=== PATIENT | male | born 1955 ===

== ENCOUNTER 2017-01-12 12:36 | Inpatient (IN) | payer MEDICAID ==
[2017-01-12 14:10] LABS: CHLORIDE 100 mmol/L (98-107); POTASSIUM 4.4 mmol/L (3.6-5.2); SODIUM 137 mmol/L (132-148)
[2017-01-12 14:12] LABS: GFR AFRICAN-AMERICAN > 60
[2017-01-12 14:13] LABS: ALB/GLOB RATIO 0.9 (1.0-2.1); ALKALINE PHOSPHATASE 63 U/L (38-126); ALT/SGPT 20 U/L (21-72); AST/SGOT 92 U/L (17-59); BLOOD UREA NITROGEN 14 mg/dL (9-20); CALCIUM 8.8 mg/dl (8.6-10.4); CARBON DIOXIDE 17 mmol/L (22-30); GLUCOSE,RANDOM 127 mg/dL (75-110); TOTAL PROTEIN 8.2 g/dL (6.3-8.3)
[2017-01-12 14:14] LABS: ALCOHOL SERUM 236 mg/dl (0-10)
[2017-01-12 14:17] LABS: BASO # 0.1 K/uL (0.0-0.2); BASO % 2.1 % (0.0-2.0); EOS % 0.2 % (0.0-4.0); HEMATOCRIT 28.3 % (35.0-51.0); LYMPH % 22.4 % (20.0-40.0); MEAN CELL VOLUME 90.4 fL (80.0-94.0); MEAN CORPUSCULAR HEMOGLOBIN 28.8 pg (27.0-31.0); MEAN CORPUSCULAR HGB CONC 31.8 g/dL (33.0-37.0); MEAN PLATELET VOLUME 9.6 fL (7.2-11.7); MONO # 0.8 K/uL (0.0-0.8); MONO % 18.6 % (0.0-10.0); WHITE BLOOD COUNT 4.3 K/uL (4.8-10.8)
--- NOTE | 2017-01-12 14:17 | C.PDOC ---
History Of Present Illness 61 y/o male presents to ED requesting alcohol detox. Patient states he regularly drinks 1 or more bottles of wine per night. Patient reports last drink was last night. Denies any other significant complaints. Chief Complaint (Nursing): Substance Abuse History Per: Patient History/Exam Limitations: no limitations Current Symptoms Are (Timing): Still Present Modifying Factor(s): Alcohol Associated Symptoms: Depression, Suicidal Thoughts. denies: Anger, Agitation, Suicidal Plan Recent travel outside of the [place]: No Past Medical History Reviewed: Historical Data, Nursing Documentation, Vital Signs Vital Signs: Last Vital Signs Temp 98.4 F 01/12/17 13:58 Pulse 103 H 01/12/17 13:58 Resp 20 01/12/17 13:58 BP 95/54 L 01/12/17 13:58 Pulse Ox 97 01/12/17 14:19 - Medical History PMH: HTN Family History: States: Unknown Family Hx - Social History Hx Alcohol Use: Yes Hx Substance Use: No - Immunization History Hx Tetanus Toxoid Vaccination: No Hx Influenza Vaccination: No Hx Pneumococcal Vaccination: No Review Of Systems Except As Marked, All Systems Reviewed And Found Negative. Constitutional: Negative for: Fever, Chills Cardiovascular: Negative for: Chest Pain, Palpitations Respiratory: Negative for: Shortness of Breath, Wheezing Gastrointestinal: Negative for: Nausea, Vomiting Skin: Negative for: Rash Neurological: Negative for: Headache, Dizziness Physical Exam - Physical Exam Appears: Non-toxic, No Acute Distress Skin: Warm, Dry Head: Atraumatic, Normacephalic Chest: Symmetrical Cardiovascular: Rhythm Regular Respiratory: Normal Breath Sounds, No Rales, No Rhonchi, No Wheezing Gastrointestinal/Abdominal: Soft, No Tenderness, No Guarding, No Rebound Back: Normal Inspection Extremity: Normal ROM, Capillary Refill (< 2 sec. ) Neurological/Psych: Oriented x3 ED Course And Treatment - Laboratory Results Result Diagrams: 01/12/17 13:59 01/12/17 13:59 O2 Sat by Pulse Oximetry: 97 Pulse Ox Interpretation: Normal Medical Decision Making Medical Decision Making: Plan: * Labs * Crisis Eval * Reassess Progress: Disposition - Disposition Disposition: HOSPITALIZED Disposition Time: 18:14 Condition: STABLE - Clinical Impression Clinical Impression: Alcohol abuse - Scribe Statement The provider has reviewed the documentation as recorded by the Robert Giron Provider Scribe Attestation: All medical record entries made by the Scribe were at my direction and personally dictated by me. I have reviewed the chart and agree that the record accurately reflects my personal performance of the history, physical exam, medical decision making, and the department course for this patient. I have also personally directed, reviewed, and agree with the discharge instructions and disposition. Decision To Admit - Pt Status Changed To: Hospital Disposition Of: Inpatient - Admit Certification Admit to Inpatient:: After my assessment, the patient will require hospitalization for at least two midnights. This is because of the severity of symptoms shown, intensity of services needed, and/or the medical risk in this patient being treated as an outpatient. - InPatient: Physician Admission Certification: I certify that this patient requires 2 or more midnights of care for the following reason:: needs inpatient detox - . Bed Request Type: Detox Admitting Physician: Yary Mix Patient Diagnosis: Alcohol abuse
[2017-01-12 15:14] LABS: RBC URINE 5 /hpf (0-3); URINE BACTERIA RARE (<OCC); URINE BILIRUBIN NEGATIVE (NEGATIVE); URINE COLOR Yellow (YELLOW); URINE GLUCOSE (UA) NORMAL (Normal); URINE KETONE TRACE mg/dL (NEGATIVE); URINE LEUKOCYTE ESTERASE 3+ Leu/uL (Negative); URINE PROTEIN NEGATIVE (NEGATIVE); URINE UROBILINOGEN NORMAL mg/dL (0.2-1.0); WBC URINE 85 /hpf (0-5)
[2017-01-12 15:21] LABS: URINE BLOOD TRACE (NEGATIVE)
[2017-01-12 20:17] VITALS: RESP 18
[2017-01-13] MEDS: Multiple Vitamins Tab PO SCH (09:53)
[2017-01-14] MEDS: Multiple Vitamins Tab PO SCH (09:24)
--- NOTE | 2017-01-14 19:05 | PCM.PSYCH ---
Initial Psychiatric Evaluation - Initial Psychiatric Evaluation Legal Status: Capacity Chief Complaint (in patient's own words): I want to get sober. Patient's Reaction to Hospitalization: I'm glad they finally had a bed for me. 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 Pt had a blood alcohol llevel of 236. He started drinking in [place] at age 11. He started drinking heavily about 8 or 9 yrs ago. Pt inn the past used heroin, 3-4 bags a day and allso smoked crack cocaine. Pt has had 1 previous detox at [facility]. 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 Gis father is ; he mother is living. He has 1 br and 1 sis. He has no psych history. He has never been on psychiatric meds. He has no history of suicide ideation or attempts. Pt has extensive medical history: htn, dm, s/p gastric cancer w colostomy. Current Medications: Active Medications Generic Name Dose Route Start Last Admin Trade Name Kaushik PRN Reason Stop Dose Admin Chlordiazepoxide 25 mg 01/13/17 00:00 01/14/17 13:19 Librium PO 01/16/17 23:59 25 mg TID JOSIAH Administration Taper Chlordiazepoxide 25 mg 01/12/17 18:45 01/13/17 09:53 Librium PO 25 mg Q4H PRN Administration Alcohol Withdrawal Folic Acid 1 mg 01/13/17 10:00 01/14/17 09:24 Folic Acid PO 1 mg DAILY JOSIAH Administration Lisinopril 10 mg 01/13/17 10:00 01/14/17 09:24 Zestril PO 10 mg DAILY JOSIAH Administration Metformin HCl 1,000 mg 01/13/17 10:00 01/14/17 09:25 Glucophage PO 1,000 mg DAILY JOSIAH Administration Multivitamins 1 tab 01/13/17 10:00 01/14/17 09:24 Hexavitamin PO 1 tab DAILY JOSIAH Administration Thiamine HCl 100 mg 01/13/17 10:00 01/14/17 09:25 Vitamin B1 Tab PO 100 mg DAILY JOSIAH Administration Trazodone HCl 50 mg 01/12/17 18:45 01/12/17 21:01 Desyrel PO 50 mg HS PRN Administration Insomnia Past Psychiatric History - Past Psychiatric History Previous Treatment History: None Pertinent Medical Hx (Current Medical&Sleep Prob, Allergies): Allergies Allergy/AdvReac Type Severity Reaction Status Date / Time No Known Allergies Allergy Unverified 01/12/17 12:42 Unobtainable 01/12/17 Review of Systems - Constitutional Constitutional: Weakness, Malaise - EENT Eyes: UNREMARKABLE Ears: UNREMARKABLE Nose/Mouth/Throat: UNREMARKABLE - Cardiovascular Cardiovascular: UNREMARKABLE - Respiratory Respiratory: UNREMARKABLE - Gastrointestinal Gastrointestinal: As Per HPI - Genitourinary Genitourinary: UNREMARKABLE - Reproductive: Male Reproductive:Male: UNREMARKABLE - Musculoskeletal Musculoskeletal: UNREMARKABLE - Integumentary Integumentary: UNREMARKABLE - Neurological Neurological: Dizziness, Tremor - Psychiatric Psychiatric: UNREMARKABLE - Endocrine Endocrine: UNREMARKABLE - Hematologic/Lymphatic Hematologic: UNREMARKABLE Mental Status Examination - Personal Presentation Personal Presentation: Looks older than stated age - Affect Affect: Constricted - Motor Activity Motor Activity: Calm - Reliability in Providing Information Reliability in Providing Information: Good - Speech Speech: Organized - Mood Mood: Anxious - Formal Thought Process Formal Thought Process: No Impairment - Cognitive Functions Orientation: Person, Place, Situation, Time Sensorium: Alert Attention/Concentration: Attentive Abstract Thinking: As evidence by abstract perception of proverbs Estimate of Intelligence: Average Judgement: Intact, as evidence by: Insight regarding need for hospitalization Memory: Recent intact, as evidence by: 3/3 object recall, Remote intact, as evidenced by: Ability to recall historical events - Risk Risk: Seizure, Withdrawal - Strength & Assets Inventory Strength & Assets Inventory: Intelligence, Education, Employment history, Life experience - Limitations Additional comments: no primary support system DSM 5 DX - Recommended/Plan of Treatment Treatment Recommendations and Plan of Treatment: Alcohol Use Disorder, severe Alcohol withdrawal DM HTN S/P gastric cancer w colonoscopy Alcohol Use Disorder, severe Group, milieu and rec therapy Supportive psychotherapy CT and CBT Alcohol withdrawal Librium taper Group milieu and rec therapy Supportive psychotherapy CT and CBT DM Glucophage FSBS AC & HS HTN Lisinopril Projected ELOS: 5 days Prognosis: good, with treatment Discharge Plan and Discharge Criteria: no signs of withdrawal and referral to rehab - Smoking Cessation Smoking Cessation Initiated: No
--- NOTE | 2017-01-14 22:15 | PCM.PYCHPN ---
Psychiatric Progress Note - Psychiatric Progress Note Patient seen today, length of contact: 15 Patient Chief Complaint: I FEEL MISERABLE Problems Identified/Issues Discussed: WITHDRAWAL SYMPTOM PAWS Medical Problems: NOTHING ACUTE Diagnostic Results: REVIEWED DSM 5 Symptoms Update: TREMORS ANXIETY INSOMNIA Medication Change: Yes (LIBRIUM TAPER) Medical Record Reviewed: Yes Mental Status Examination - Cognitive Function Orientation: Person, Situation, Time Attention: WNL Concentration: WNL Association: WNL Fund of Knowledge: WNL - Mood Mood: Anxious - Affect Affect: Constricted - Speech Speech: Appropriate - Formal Thought Process Formal Thought Process: No Impairment - Suicidal Ideation Suicidal Ideation: No - Homicidal Ideation Homicidal Ideation: No Goal/Treatment Plan - Goal/Treatment Plan Progress Toward Problem(s) and Goals/Treatment Plan: Alcohol Use Disorder, severe Alcohol withdrawal DM HTN S/P gastric cancer w colonoscopy Alcohol Use Disorder, severe Group, milieu and rec therapy Supportive psychotherapy HI and CBT Alcohol withdrawal Librium taper Group milieu and rec therapy Supportive psychotherapy HI and CBT DM Glucophage FSBS AC & HS HTN Lisinopril Estimated Date of D/C: 01/17/17 - Smoking Cessation Smoking Cessation Initiated: No
[2017-01-15] MEDS: Multiple Vitamins Tab PO SCH (09:15)
[2017-01-15 11:45] LABS: RBC URINE 4 /hpf (0-3); URINE BACTERIA MANY (<OCC); URINE BILIRUBIN NEGATIVE (NEGATIVE); URINE BLOOD NEGATIVE (NEGATIVE); URINE GLUCOSE (UA) NORMAL (Normal); URINE KETONE NEGATIVE (NEGATIVE); URINE LEUKOCYTE ESTERASE 2+ Leu/uL (Negative); URINE PROTEIN NEGATIVE (NEGATIVE); WBC URINE 64 /hpf (0-5)
[2017-01-15 12:04] LABS: URINE COLOR YELLOW (YELLOW)
[2017-01-15 13:02] LABS: BASO # 0.1 K/uL (0.0-0.2); BASO % 1.3 % (0.0-2.0); EOS # 0.1 K/uL (0.0-0.7); EOS % 2.3 % (0.0-4.0); HEMATOCRIT 30.1 % (35.0-51.0); LYMPH # 0.9 K/uL (1.0-4.3); LYMPH % 21.2 % (20.0-40.0); MEAN CELL VOLUME 90.8 fL (80.0-94.0); MEAN CORPUSCULAR HGB CONC 31.9 g/dL (33.0-37.0); MEAN PLATELET VOLUME 9.8 fL (7.2-11.7); MONO # 0.6 K/uL (0.0-0.8); MONO % 13.4 % (0.0-10.0); RED CELL DISTRIBUTION WIDTH 17.6 % (11.5-14.5); WHITE BLOOD COUNT 4.1 K/uL (4.8-10.8)
[2017-01-15 13:31] LABS: CHLORIDE 100 mmol/L (98-107); POTASSIUM 3.8 mmol/L (3.6-5.2); SODIUM 137 mmol/L (132-148)
[2017-01-15 13:33] LABS: ALB/GLOB RATIO 0.9 (1.0-2.1); ALKALINE PHOSPHATASE 72 U/L (38-126); AST/SGOT 105 U/L (17-59); BILIRUBIN,TOTAL 1.9 mg/dL (0.2-1.3); CARBON DIOXIDE 22 mmol/L (22-30); GFR AFRICAN-AMERICAN > 60; TOTAL PROTEIN 8.3 g/dL (6.3-8.3)
[2017-01-15 13:34] LABS: ALT/SGPT 18 U/L (21-72); BLOOD UREA NITROGEN 14 mg/dL (9-20); CALCIUM 9.7 mg/dl (8.6-10.4); GLUCOSE,RANDOM 121 mg/dL (75-110); MAGNESIUM 1.7 mg/dL (1.6-2.3)
--- NOTE | 2017-01-15 16:28 | PCM.PYCHPN ---
Psychiatric Progress Note - Psychiatric Progress Note Patient seen today, length of contact: 17 minutes Patient Chief Complaint: "I'm feeling good" Problems Identified/Issues Discussed: Pt seen, chart reviewed, and case discussed with staff. Pt reports that he is feeling well and has no complaints. He was able to sleep last night after taking medication. He denies any withdrawal symptoms or side effects from medication. Aftercare was discussed and patient is open to going to rehab. Support and psychosocial education given. Medication Change: Yes (LIBRIUM TAPER) Medical Record Reviewed: Yes Mental Status Examination - Cognitive Function Orientation: Person, Place, Situation, Time Memory: Intact Attention: WNL Concentration: WNL Association: WNL Fund of Knowledge: WNL - Mood Mood: Neutral - Affect Affect: Broad - Speech Speech: Appropriate - Formal Thought Process Formal Thought Process: No Impairment - Suicidal Ideation Suicidal Ideation: No - Homicidal Ideation Homicidal Ideation: No Goal/Treatment Plan - Goal/Treatment Plan Need for Continued Stay: Remain at risks for inpatient hospitalization, Discharge may exacerbated symptoms Progress Toward Problem(s) and Goals/Treatment Plan: Alcohol Withdrawal -Librium taper and PRN -medications as needed -monitor vitals -thiamine/folic acid/multivitamin -CBT -support and psychoeducation -Trazodone for sleep Alcohol Use Disorder -severe -CBT -attend groups and activities -individual/group therapy -Use [place] for abstinence DM - glucophage HTN - Lisinopril Estimated Date of D/C: 01/17/17
[2017-01-16] MEDS: Multiple Vitamins Tab PO SCH (10:32)
--- NOTE | 2017-01-16 13:23 | PCM.PYCHPN ---
Psychiatric Progress Note - Psychiatric Progress Note Patient seen today, length of contact: 15 minutes Patient Chief Complaint: "I'm good" Problems Identified/Issues Discussed: Pt is seen, chart reviewed, and case discussed with staff. Pt reports that he is feeling great. Pt denies withdrawal symptoms and is not tremulous. He slept well last night. Pt says his mood is good and his only complaint is his colostomy bag. He denies any anxiety or depression. He denies any side effects from medications. Pt would like to go to rehab, which is now secured for . Support and psychoeducation given. Since he is still having some sxs (despite his feeling better) he will be watched one more day. Medication Change: Yes (LIBRIUM TAPER) Medical Record Reviewed: Yes Mental Status Examination - Cognitive Function Orientation: Person, Place, Situation, Time Memory: Intact Attention: WNL Concentration: WNL Association: WN Fund of Knowledge: WNL - Mood Mood: Neutral - Affect Affect: Broad - Speech Speech: Appropriate - Formal Thought Process Formal Thought Process: No Impairment - Suicidal Ideation Suicidal Ideation: No - Homicidal Ideation Homicidal Ideation: No Goal/Treatment Plan - Goal/Treatment Plan Need for Continued Stay: Remain at risks for inpatient hospitalization, Discharge may exacerbated symptoms Progress Toward Problem(s) and Goals/Treatment Plan: Alcohol Withdrawal -Librium taper and PRN -medications as needed -monitor vitals -thiamine/folic acid/multivitamin -CBT -support and psychoeducation -Trazodone 100mg for sleep Alcohol Use Disorder -severe -CBT -attend groups and activities -individual/group therapy -Use [place] for abstinence - refer to rehab DM - glucophage HTN - Lisinopril He is accepted by rehab starting . Estimated Date of D/C: 01/17/17
[2017-01-17 06:15] VITALS: TEMP 97.3
--- NOTE | 2017-01-17 08:56 | PCM.PYCHDC ---
Mental Status Examination - Mental Status Examination Orientation: Person, Place, Situation, Time Memory: Intact Mood: Neutral Affect: Broad Speech: Appropriate Attention: WNL Concentration: WNL Association: WNL Fund of Knowledge: WNL Formal Thought Process: No Impairment Suicidal Ideation: No Current Homicidal Ideation?: No Discharge Summary - Discharge Note Reason for Hospitalization: Alcohol detox Laboratory Data: Abnormal Lab Results 01/17/17 07:15 POC Glucose (mg/dL) 259 H Consultations:: List each consultation separately and include: 1. Reason for request. 2. Findings. 3. Follow-up Summary of Hospital Course include:: 1. Description of specific treatment plan utilized for patients during their course of treatmen. 2. Summarize the time- course for resolution of acute symptoms and/or regressed behaviors. 3. Describe issues identified and worked on during hospitalization. 4. Describe medication utilized. 5. Describe medical problems identified and treated. 6. 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 Pt had a blood alcohol llevel of 236. He started drinking in [facility] at age 11. He started drinking heavily about 8 or 9 yrs ago. Pt inn the past used heroin, 3-4 bags a day and allso smoked crack cocaine. Pt has had 1 previous detox at [facility]. 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 Gis father is ; he mother is living. He has 1 br and 1 sis. He has no psych history. He has never been on psychiatric meds. He has no history of suicide ideation or attempts. Pt has extensive medical history: htn, dm, s/p gastric cancer w colostomy. Pt is seen, chart reviewed, case discussed. Pt is doing well today and feels ready to go to rehab. He has no tremors or withdrawal symptoms. Only complaint is his colostomy bag. His mood is positive and he feels like he needs to do this for his health. Support and psychoeducation was given. Over the course of his hospitalization patient responded well to detox. Pt was cooperative and calm. Pt remained positive. Attended groups [place], CBT used Librium detox completed Pt responded well to treatment - Final Diagnosis (DSM 5) Condition upon Discharge: STABLE DSM 5: Alcohol Use Disorder-severe Alcohol Withdrawal Disposition: REHAB FACILITY/REHAB UNIT Follow-up Treatment Plan: Continue below meds Aftercare: Rehab at [facility] Use relapse prevention skills Return to ER if experiencing suicidal ideation, homicidal ideation, aggitation Prescriptions/Medication Reconciliation: Lisinopril [Zestril] 10 mg PO DAILY #30 tab metFORMIN [glucOPHAGE] 1,000 mg PO DAILY #30 tab Multivitamins [Hexavitamin] 1 tab PO DAILY #30 tab traZODone [Desyrel] 100 mg PO HS PRN #30 tab PRN Reason: Insomnia - Antipsychotic Medications Pt discharged on 2 or more routine antipsychotic medications: No
[2017-01-17 09:14] VITALS: BP 124/74; PULSE 103; O2SAT 99
[2017-01-17] MEDS: Multiple Vitamins Tab PO SCH (09:23)
== END 2017-01-17 10:15 | DRG 751 ==
LOC: C.ER 12:36 → C.7D 18:15
PROVIDERS: ADMIT Psychiatry & Neurology Psychiatry; ATTEND Psychiatry & Neurology Psychiatry
PROC: HZ2ZZZZ Detoxification Services for Substance Abuse Treatment (ICD-10-PCS; principal; 2017-01-12)
PROC: HZ46ZZZ Group Counseling for Substance Abuse Treatment, Psychoeducation (ICD-10-PCS; 2017-01-12)
PROC: HZ59ZZZ Individual Psychotherapy for Substance Abuse Treatment, Supportive (ICD-10-PCS; 2017-01-12)
DX: F10.239 Alcohol dependence with withdrawal, unspecified (principal); I10 Essential (primary) hypertension; Y90.7 Blood alcohol level of 200-239 mg/100 ml; E11.9 Type 2 diabetes mellitus without complications; Z79.84 Long term (current) use of oral hypoglycemic drugs; Z85.028 Personal history of other malignant neoplasm of stomach; Z93.3 Colostomy status